=== PATIENT | female | born 2000 | race Caucasian/White ===

== ENCOUNTER 2023-12-26 10:07 | Outpatient (REF) | payer BC, SELFPAY ==
--- NOTE | 2023-12-26 09:40 | PAPFT_PTH ---
PATIENT: Maggie Thornton LOC: [facility] U#:[id number] AGE/SX: 23/F ROOM: RE12/26/[address]: Rosalina Wood MD : 2000 BED: DIS: 12/26/2023 SPEC #: [id number] RECD: 12/26/23 13:32 STATUS: CLARI RECami #: [id number] JOSE MARIA: 12/26/23 09:[address]: Rosalina Wood DEPT: [facility] Cytology RECD BY: Arlene Gamino ENTERED: 12/26/23 13:32 SP TYPE: PAPFT LIAM DR: Unknown,Unknown Tissues: 1 - CX/ENDOCX FOR PAP SMEARS Procedures: PAP THIN PREP/[facility] Screening HPV DNA PROBE Comments: [id number] (HPV 16 & 18/45)
== END 2023-12-26 10:08 | disposition home or self-care (01) ==
LOC: LBN 10:07
PROVIDERS: Visit Provider Obstetrics & Gynecology
DX: Z12.4 Encounter for screening for malignant neoplasm of cervix (principal)
CPT/HCPCS: 88142; 87624

== ENCOUNTER 2025-01-11 17:55 | Outpatient (REF) | payer BC, SELFPAY | END 2025-01-11 17:56 | disposition home or self-care (01) | LOC: LBN 17:55 | PROVIDERS: PCP Obstetrics & Gynecology; Visit Provider Obstetrics & Gynecology | DX: Z12.4 Encounter for screening for malignant neoplasm of cervix (principal) | CPT/HCPCS: 88142; 87624 ==

== ENCOUNTER 2025-03-04 12:24 | Outpatient (REF) | payer BC, SELFPAY ==
--- NOTE | 2025-03-04 15:30 | ENDO_PTH ---
PATIENT: Maggie Thornton LOC: [facility] U#:[id number] AGE/SX: 24/F ROOM: RE03/04/[address]: Chioma Kauffman DO : 2000 BED: DIS: 03/04/2025 SPEC #: [id number] RECD: 03/07/25 12:27 STATUS: CLARI RECami #: [id number] JOSE MARIA: 03/04/25 15:[address]: Chioma Kauffman DEPT: Surgical Specimen RECD BY: Arlene Gamino Tissues: 1 - ENDOCERVICAL BX/CURRETTE 2 - CERVICAL BIOPSY Procedures: GROSS AND MICRO LEVEL 4 Comments: [id number]
== END 2025-03-04 12:25 | disposition home or self-care (01) ==
LOC: LBN 12:24
PROVIDERS: PCP Obstetrics & Gynecology; Visit Provider Obstetrics & Gynecology
DX: D26.0 Other benign neoplasm of cervix uteri (principal); D10.39 Benign neoplasm of other parts of mouth
CPT/HCPCS: 88305